=== PATIENT | female | born 1955 | race Caucasian/White ===

== ENCOUNTER → 2017-07-19 12:47 | Outpatient (CLI) | payer MEDICAID | END | disposition home or self-care (01) | LOC: D.RAD 12:47 | DX: R13.12 Dysphagia, oropharyngeal phase (principal) ==

== ENCOUNTER → 2018-05-09 08:10 | Outpatient (CLI) | payer MEDICAID | END | disposition home or self-care (01) | LOC: D.RAD 08:10 | DX: R13.10 Dysphagia, unspecified (principal) ==

== ENCOUNTER 2018-05-28 07:00 | Outpatient (CLI) | payer MEDICAID | END 2018-05-28 08:40 | LOC: D.OPS 07:00 | DX: R13.10 Dysphagia, unspecified (principal); Z01.812 Encounter for preprocedural laboratory examination ==

== ENCOUNTER → 2018-07-09 09:58 | Outpatient (CLI) | payer MEDICAID | END | disposition home or self-care (01) | LOC: D.NM 09:58 | DX: K80.80 Other cholelithiasis without obstruction (principal) ==

== ENCOUNTER 2019-02-20 08:35 | Outpatient (CLI) | payer MEDICAID ==
[~2019-02-20] VITALS: Ht 170.2 cm; Wt 59.1 kg
[2019-02-20 08:54] LABS: BASOPHILS 1.2 % (0-2); EOSINOPHILS 4.1 % (0-7); HEMATOCRIT 30.3 % (36.0-48.0); IMMATURE GRANULOCYTES 0.2 % (0-5); LYMPHOCYTES 25.6 % (15-50); MCH 31.7 pg (26.0-34.0); MCV 96.2 fL (80.0-100.0); MEAN PLATELET VOLUME 10.4 fL (7.4-10.4); MONOCYTES 9.5 % (2-11); NEUTROPHILS 59.4 % (40-80); PLATELET COUNT 224 10x3/uL (130-400); RBC 3.15 10x6/uL (4.00-5.40); RDW 11.9 % (11.5-14.5); WBC 5.9 10x3/uL (4.8-10.8)
[2019-02-20 09:07] LABS: ANION GAP 14.4 mmol/L (8-16); CALCIUM 9.3 mg/dL (8.5-10.1); CARBON DIOXIDE 27.5 mmol/L (21.0-32.0); POTASSIUM - SERUM 3.9 mmol/L (3.5-5.1)
[2019-02-20 09:09] LABS: APTT 28.2 SECONDS (22.8-39.4); INR 0.99 (0.85-1.17); PROTIME 12.6 SECONDS (11.6-15.0)
[2019-02-20] MEDS ORDERED: EFFEXOR75 MG PO (09:36)
[2019-02-20] MEDS ORDERED: PROTONIX40 MG PO (09:38)
[2019-02-20] MEDS ORDERED: LOPRESSOR25 MG PO (09:40)
[2019-02-20] MEDS ORDERED: RANITIDINE HCL150 M1 PO (09:41)
[2019-02-20] MEDS ORDERED: FLUTICASONE PRO16 GM NASAL (09:43)
[2019-02-20 09:45] VITALS: BP 151/88; Ht 170.2 cm; Wt 59.1 kg
--- NOTE | 2019-02-20 14:50 | NUR ---
LEFT WRIST PIV DC'D WITH TIP INTACT. PATIENT DRESSING IN PERSONAL CLOTHING. DISCHARGE INSTRUCTIONS REVIEWED WITH PATIETN AND SPOUSE.
== END 2019-02-20 15:15 | disposition home or self-care (01) ==
LOC: D.SP 08:35
PROVIDERS: Radiology Vascular & Interventional Radiology; ATTEND Internal Medicine Hematology & Oncology
DX: D64.9 Anemia, unspecified (principal); Z01.812 Encounter for preprocedural laboratory examination

== ENCOUNTER 2021-04-06 09:35 | Day surgery (SDC) | payer MEDICAID ==
[~2021-04-06] VITALS: Ht 170.2 cm; Wt 60.8 kg
[~2021-04-06 09:35] MED LIST: EFFEXOR75 MG PO; FLUTICASONE PRO16 GM NASAL; LOPRESSOR25 MG PO; PROTONIX40 MG PO; RANITIDINE HCL150 M1 PO
[2021-04-06 10:37] LABS: ANION GAP 10.1 mmol/L (8-16); CALCIUM 9.4 mg/dL (8.5-10.1); CARBON DIOXIDE 28.4 mmol/L (21.0-32.0); POTASSIUM - SERUM 4.5 mmol/L (3.5-5.1)
[2021-04-06 11:03] VITALS: BP 165/97; Ht 170.2 cm; Wt 60.8 kg
[2021-04-06 12:47] LABS: HEMATOCRIT 31.7 % (36.0-48.0); HEMOGLOBIN 10.5 g/dL (12-16); LYMPHOCYTES 25.5 % (15-50); MCH 32.2 pg (26.0-34.0); MCHC 33.2 g/dL (31.0-37.0); MEAN PLATELET VOLUME 9.7 fL (7.4-10.4); MONOCYTES 7.9 % (2-11); NEUTROPHILS 61.6 % (40-80); PLATELET COUNT 232 10x3/uL (130-400); RBC 3.27 10x6/uL (4.00-5.40); RDW 12.5 % (11.5-14.5); WBC 6.3 10x3/uL (4.8-10.8)
[2021-04-06] MEDS ORDERED: HYDROCODON-ACE1 EAC7 PO (13:32)
[2021-04-06] MEDS ORDERED: VISTARIL50 MG PO (13:32)
[2021-04-06] MEDS ORDERED: ZOFRAN ODT4 MG/UDTAB PO (13:33)
--- NOTE | 2021-04-06 15:24 | NUR ---
DISCHARGED VIA W/C, ACCOMPANIED BY THIS NURSE, TO POV WITH DAUGHTER BEST MEYER. ALL BELONGINGS WITH PT/DAUGHTER.
--- NOTE | 2021-04-07 08:28 | OP ---
PATIENT NAME: CANDIDA RAJPUT MEDICAL RECORD: [id number] :57 LOCATION:[facility] ADMISSION DATE: SURGEON: BRAD REYNOLDS DO DATE OF OPERATION: 04/06/2021 PROCEDURE PERFORMED: Right distal radius open reduction internal fixation. PREOPERATIVE DIAGNOSIS: Closed right distal radius fracture. POSTOPERATIVE DIAGNOSIS: Closed right distal radius fracture. INDICATIONS: Ms. Rajput is a 65-year-old female who has had a right distal radius fracture for a few weeks. She has been treated nonoperatively thus far, but it started to actually displace. I saw her in clinic on Sunday and saw that. I informed her that we would probably displace it, the fact it was starting to displace even though she had some callus forming, but I would put a plate on to keep it from doing that and do an open reduction and internal fixation. I warned her of the risks including infection, bleeding, damage to nerves or vessels, need for further surgery, malunion, nonunion, continued pain, loss of motion of the wrist and she signed the consent. SURGEON: Brad Reynolds DO DESCRIPTION OF PROCEDURE: The patient received a block by anesthesia in the preoperative area and taken to the operative suite, laid in the supine position, given general anesthetic and LMA was placed. She was given 2 grams of Ancef. The right upper extremity was then prepped and draped in sterile fashion. A timeout was performed. Everyone was in agreeance with the correct side, site, patient and procedure. I then exsanguinated the right upper extremity with an Esmarch and tourniquet was inflated to 250 mmHg, it was up for 17 minutes. I then made an incision over the flexor carpi radialis tendon, made careful dissection down to the tendon, took it radially and opened up the tendon sheath on the dorsal side of it. I then went down to the pronator quadratus, peeled it off in an L shape off the distal radius, cleaned out the fracture site and reduced it, and put the Acumed plate on. Once this was pinned into place in appropriate position, I put in a shaft screw, a 12, and then went to the distal radius and put 4 distal locking screws, an 18 mm in length, I then put an 18 mm on the radial styloid. I then put in 2 more locking screws, a 10 in the more proximal and 11 in the more distal hole of the shaft. X-rays were taken, everything was in good position and very well fixed. I then let the tourniquet down, coagulated any bleeding with pickup and Bovie. Anthony Cochran, certified diabetes educator then closed the skin with 3-0 Vicryl in an inverted interrupted fashion and placed on Prineo glue and dressed with Adaptic, 4x4 cast padding and a volar splint placed and secured with an Ang wrap. She was awakened and taken to recovery in stable condition. BLOOD LOSS: Minimal. COMPLICATIONS: None. TRANSINT:[id number] Voice Confirmation ID: [id number] DOCUMENT ID: [id number] OPERATIVE REPORT [id number] CANDIDA RAJPUT,BRAD Tate DO at 0828 CC: [id number] DICTATION DATE: 04/06/21 1338 [employer]ER: 04/06/21 1553 [facility] 04/06/21 [facility] [address] [place] [address]
== END 2021-04-06 15:24 | disposition home or self-care (01) ==
LOC: D.OPS 09:35
PROVIDERS: Anesthesiology; ATTEND Orthopaedic Surgery
DX: S52.501A Unspecified fracture of the lower end of right radius, initial encounter for closed fracture (principal); X58.XXXA Exposure to other specified factors, initial encounter